=== PATIENT | female | born 1965 | race Caucasian/White ===

== ENCOUNTER 2018-06-09 05:40 | Day surgery (SDC) | payer OTHER ==
[~2018-06-09 05:40] MED LIST: CATAFLAM50 MG PO; WELLBUTRIN SR100 MG PO
[2018-06-09] MEDS ORDERED: NAPROXEN375 MG PO (08:53)
== END 2018-06-09 12:25 | disposition home or self-care (01) ==
LOC: CIR.AMB 05:40
DX: N84.0 Polyp of corpus uteri (principal)